=== PATIENT | male | born 1940 | race Two or more races ===

== ENCOUNTER 2019-03-03 20:09 | Emergency (ER) | payer MEDICARE, MEDICAID ==
[~2019-03-03] VITALS: Ht 170.2 cm; Wt 69.9 kg
--- NOTE | 2019-03-03 20:15 | NUR ---
PT [id number] COMPLAINING OF HIGH BLOOD PRESSURE WITH VERTIGO, PT TOOK MEDICATION NUTRITIONISTS. NO COMPLAINTS OF DIZZINESS OR VERTIGO AT THIS MOMENT. PT AXO4. RESPIRATIONS EVEN AND UNLABORED. 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 PT HYPERTENSIVE ON THE MONITOR.
--- NOTE | 2019-03-03 20:30 | NUR ---
PT TAKEN TO CT.
--- NOTE | 2019-03-03 20:45 | NUR ---
PT RETURNED FROM CT.
--- NOTE | 2019-03-03 21:31 | NUR ---
PT HYPERTENSIVE ON THE MONITOR. ER MD AWARE, AND OK WITH DISCHARGE.
--- NOTE | 2019-03-03 21:32 | NUR ---
Patient discharged to home in stable condition. Written and verbal after care instructions given. Patient verbalizes understanding of instruction.
[2019-03-03 21:33] VITALS: BP 176/82
== END 2019-03-03 21:34 | disposition home or self-care (01) ==
LOC: ER 20:11 → EDSEX 20:11 → ER 21:34
DX: I21.9 Acute myocardial infarction, unspecified (principal); I10 Essential (primary) hypertension; R51 Headache; Z95.5 Presence of coronary angioplasty implant and graft; Z98.890 Other specified postprocedural states
CPT/HCPCS: 70450-TC